=== PATIENT | female | born 1970 | race Caucasian/White ===

== ENCOUNTER 2024-02-12 19:39 | Emergency (ER) | payer SELFPAY ==
[2024-02-12 19:47] VITALS: BP 157/92; PULSE 82; RESP 14; TEMP 36.6; O2SAT 97
--- NOTE | 2024-02-12 20:14 | ED_ITS ---
Documented by User: [email or web address] Zamudio 02/12/24 20:20 HPI - Skin/Abscess/Foreign Bdy General: Chief complaint: Skin/Abscess/Foreign Body Stated complaint: Bug bite under right arm Time Seen by Provider: 02/12/24 19:50 Source: patient Mode of arrival: ambulatory Limitations: no limitations History of Present Illness: Patient is a 54-year-old female who presents to the emergency department complaining of bite to right axillary region onset Sunday. Patient states that she put on a very old hoodie, and felt a bite while at work. She suspected spider bite, and initially presented to urgent care where she was prescribed clindamycin. She states she has only taken it for 1 day, though got concerned when cellulitis seem to spread past previously drawn margins. She denies any fever, vomiting, or other systemic signs of illness, and states that she is paying [id number] and just wants an injectable antibiotic. MD complaint: insect bite/sting Onset (ago): day(s) Location: chest (Right axillary) Severity: moderate Associated symptoms: Reports no associated symptoms; Deny chills, fever(s), nausea or vomiting Treatments prior to arrival: antibiotic Review of Systems General: Reports: 10 or more systems reviewed and unremarkable except in HPI and below Const: Denies: fever(s), chills or fatigue Eyes: Denies: change in vision ENMT: Denies: throat pain, ear or mastoid pain or nasal discharge Card: Denies: chest pain, palpitations, swelling of feet/ankles or lightheadedness Resp: Denies: dyspnea, productive cough or wheezing GI: Denies: abdominal pain, nausea, vomiting, diarrhea or constipation : Denies: flank pain, difficulty voiding, dysuria or urinary frequency Musc: Denies: neck pain, back pain or joint pain Skin/Breast: Reports: erythema, skin pain, skin tenderness and new lesions (Bug bite to right axillary region); Denies: rash Neuro: Denies: headache(s), numbness in extremities or weakness in extremities PFSH ED PFSH: Medical History Hyperlipidemia Anxiety HTN (hypertension) GERD (gastroesophageal reflux disease) Migraine Surgical History History of total abdominal hysterectomy Family History Father Stroke Diabetes Cancer Family/Other Cancer Social History Smoking and tobacco/nicotine status: current every day tobacco/nicotine user Alcohol intake: never Substance/Drug Use: never Physical Exam Const: COMMON NORMALS: no acute distress, average body habitus, patient oriented x3, no limitations, healthy appearing and alert GENERAL APPEARANCE: cooperative and comfortable ORIENTATION/CONSCIOUSNESS: Yes awake HENMT: COMMON NORMALS: normocephalic and atraumatic HEAD & SCALP: normocephalic and atraumatic Eye: COMMON NORMALS: EOMs intact bilaterally and conjunctivae normal CONJUNCTIVA: Yes conjunctivae normal Neck/C-Spine: COMMON NORMALS: full ROM Resp: COMMON NORMALS: normal respiratory effort, No use of accessory muscles and clear to auscultation bilaterally AUSCULTATION: clear to auscultation bilaterally Cardio: COMMON NORMALS: regular rate, regular rhythm, S1 normal heart sound present and S2 normal heart sound present RATE: regular rate RHYTHM: regular rhythm HEART SOUNDS: S1 normal heart sound present and S2 normal heart sound present Extremity: COMMON NORMALS: normal to inspection and full ROM Neuro: COMMON NORMALS: patient oriented x3, moves all extremities, no focal motor deficits and no sensory deficits noted SENSORIUM/ORIENTATION: Yes alert Psych: COMMON NORMALS: mental status grossly normal Skin: NARRATIVE SKIN EXAM: Bug bite lesion with central area of necrosis noted to the right axillary region with surrounding cellulitis. No palpable abscess at this time. There is an area of induration surrounding the lesion. Not actively draining at this time. No axillary lymphadenopathy. Course Vital Signs: Vital signs: Vital Signs Temperature 98 F 02/12/24 19:47 Pulse Rate 82 02/12/24 19:47 Respiratory Rate 14 02/12/24 19:47 Blood Pressure 157/92 02/12/24 19:47 Pulse Oximetry 97 02/12/24 19:47 Oxygen Delivery Me thod Room Air 02/12/24 19:47 MDM - Skin/Abscess/Foreign Bdy Medicial Decision Making Patient presented for reevaluation of a bug bite lesion to her right axillary region, currently on clindamycin. Only taken it for a day this time. She states she was concerned due to the increased pain as well as expanding cellulitis. She has not been having any fevers or other systemic signs of illness and her vitals are normal on arrival. The area is tender to the touch on examination with surrounding cellulitis noted, though no appreciable area of fluctuance. I did offer workup including an ultrasound of the area as well as basic blood work to rule out any systemic signs of infection, however she denies this and states she has pain in the pocket and just wants an injectable antibiotic. She will be given a shot of ceftriaxone and strict return precautions are given, including any signs of systemic infection or worsening of her pain. She is to continue her clindamycin at home, add ice to the region for pain relief, and take Tylenol or ibuprofen. She agrees with this plan and will be discharged home. No radiology studies performed this visit Discharge Plan Discharge Patient Disposition: Home Clinical Impression: Cellulitis of axilla, right Brown recluse spider bite Qualifiers: Encounter type: initial encounter Injury intent: accidental or unintentional Qualified Code(s): T63.331A - Toxic effect of venom of brown recluse spider, accidental (unintentional), initial encounter Condition: Stable Prescriptions: No Action paroxetine HCl 10 mg tablet 10 mg PO DAILY nitroglycerin 0.4 mg tablet, sublingual 0.4 mg sublingual Q5M PRN Rx Instructions: do not exceed 3 doses per episode atorvastatin 10 mg tablet 10 mg PO DAILY lisinopril 10 mg tablet 10 mg PO BID Qty: 180 2RF Discharge Orders: Discharge ED (Routine); Ordered 02/12/24 Ordered By: Franklin Starks Referrals: Vince Gray MD [Primary Care Provider] - Discharge Diet: Usual diet Discharge Activity: Increase activity as tolerated Patient Instructions: Cellulitis (ED), Brown Recluse Spider Bite (ED) Activity Restrictions/Additional Instructions: Continue clindamycin at home. Ice to the area for added relief. Tylenol or ibuprofen for pain relief. Please monitor for any worsening of pain or swelling, and return for reevaluation. Monitor for any fevers or vomiting specifically. Coding Level of Care Code ED Automatic Gl[employer] Former for Shiva Cordero Documented by User: Delbert Briceño DO 02/15/24 21:39 HPI - Skin/Abscess/Foreign Bdy General: Chief complaint: Skin/Abscess/Foreign Body Stated complaint: Bug bite under right arm Time Seen by Provider: 02/12/24 19:50 PFSH ED PFSH: Medical History Hyperlipidemia Anxiety HTN (hypertension) GERD (gastroesophageal reflux disease) Migraine Surgical History History of total abdominal hysterectomy Family History Father Stroke Diabetes Cancer Family/Other Cancer Social History Smoking and tobacco/nicotine status: current every day tobacco/nicotine user Alcohol intake: never Substance/Drug Use: never Course Vital Signs: Vital signs: Vital Signs Temperature 98 F 02/12/24 19:47 Pulse Rate 82 02/12/24 19:47 Respiratory Rate 14 02/12/24 19:47 Blood Pressure 157/92 02/12/24 19:47 Pulse Oximetry 97 02/12/24 19:47 Oxygen Delivery Me thod Room Air 02/12/24 19:47 MDM - Skin/Abscess/Foreign Bdy Medicial Decision Making Patient presented for reevaluation of a bug bite lesion to her right axillary region, currently on clindamycin. Only taken it for a day this time. She states she was concerned due to the increased pain as well as expanding cellulitis. She has not been having any fevers or other systemic signs of il lness and her vitals are normal on arrival. The area is tender to the touch on examination with surrounding cellulitis noted, though no appreciable area of fluctuance. I did offer workup including an ultrasound of the area as well as basic blood work to rule out any systemic signs of infection, however she denies this and states she has pain in the pocket and just wants an injectable antibiotic. She will be given a shot of ceftriaxone and strict return precautions are given, including any signs of systemic infection or worsening of her pain. She is to continue her clindamycin at home, add ice to the region for pain relief, and take Tylenol or ibuprofen. She agrees with this plan and will be discharged home. Chart reviewed Discharge Plan Discharge Patient Disposition: Home Clinical Impression: Cellulitis of axilla, right Brown recluse spider bite Qualifiers: Encounter type: initial encounter Injury intent: accidental or unintentional Qualified Code(s): T63.331A - Toxic effect of venom of brown recluse spider, accidental (unintentional), initial encounter Condition: Stable Prescriptions: No Action paroxetine HCl 10 mg tablet 10 mg PO DAILY nitroglycerin 0.4 mg tablet, sublingual 0.4 mg sublingual Q5M PRN Rx Instructions: do not exceed 3 doses per episode atorvastatin 10 mg tablet 10 mg PO DAILY lisinopril 10 mg tablet 10 mg PO BID Qty: 180 2RF Discharge Orders: Discharge ED (Routine); Ordered 02/12/24 Ordered By: Franklin Starks Referrals: Vince Gray MD [Primary Care Provider] - Discharge Diet: Usual diet Discharge Activity: Increase activity as tolerated Patient Instructions: Cellulitis (ED), Brown Recluse Spider Bite (ED) Activity Restrictions/Additional Instructions: Continue clindamycin at home. Ice to the area for added relief. Tylenol or ibuprofen for pain relief. Please monitor for any worsening of pain or swe lling, and return for reevaluation. Monitor for any fevers or vomiting specifically. Coding Level of Care Code ED Automatic Glove Turner And Former for Shiva Cordero
[2024-02-12] MEDS: cefTRIAXone 1,000 MG in water for injection-sterile 2.1 ML 2.10000000000000009 MG IM (20:17)
== END 2024-02-12 20:23 | disposition home or self-care (01) ==
PROVIDERS: Emergency Provider Physician Assistant; PCP Family Medicine
DX: T63.331A Toxic effect of venom of brown recluse spider, accidental (unintentional), initial encounter (principal); L03.111 Cellulitis of right axilla; E78.5 Hyperlipidemia, unspecified; I10 Essential (primary) hypertension; Z72.0 Tobacco use
CPT/HCPCS: 96372; 99284; J0696